=== PATIENT | female | born 1990 | race Caucasian/White ===

== ENCOUNTER 2018-12-16 22:59 | Observation (INO) | payer BC ==
[~2018-12-16] VITALS: Ht 160 cm; Wt 90.9 kg
[~2018-12-16 22:59] MED LIST: FLAGYL500 MG PO; IBUPROFEN600 MG PO; PERCOCET 5-3251 TAB PO; PRENATAL COMPLE1 TAB PO
[2018-12-16 23:48] LABS: BASOPHILS 0.3 % (0-2); EOSINOPHILS 0.4 % (0-7); HEMATOCRIT 39.4 % (36.0-48.0); HEMOGLOBIN 13.9 g/dL (12-16); IMMATURE GRANULOCYTES 0.2 % (0-5); LYMPHOCYTES 10.9 % (15-50); MCH 29.4 pg (26.0-34.0); MCHC 35.3 g/dL (31.0-37.0); MCV 83.3 fL (80.0-100.0); MEAN PLATELET VOLUME 9.5 fL (7.4-10.4); MONOCYTES 3.9 % (2-11); NEUTROPHILS 84.3 % (40-80); RBC 4.73 10x6/uL (4.00-5.40); RDW 12.6 % (11.5-14.5); WBC 12.4 10x3/uL (4.8-10.8)
[2018-12-16 23:51] LABS: PLATELET COUNT 240 10x3/uL (130-400)
[2018-12-16 23:53] LABS: CALC OSMOLALITY 279 mosm/kg (275-300); CALCIUM 8.9 mg/dL (8.5-10.1); CARBON DIOXIDE 26.1 mmol/L (21.0-32.0); CHLORIDE - SERUM 105 mmol/L (98-107); CREATININE - SERUM 0.9 mg/dL (0.6-1.3); GLUCOSE 106 mg/dL (74-106); POTASSIUM - SERUM 4.1 mmol/L (3.5-5.1); SODIUM 140 mmol/L (136-145); UREA NITROGEN 15 mg/dL (7-18); eGFR NON AFRICAN AMERICAN 78 mL/min (90-120)
[2018-12-17] VITALS (9 sets, daily range): BP systolic 103–139; BP diastolic 60–83; Ht 160 cm; Wt 90.9 kg
[2018-12-17 00:31] LABS: INR 1.14 (0.85-1.17); PROTIME 14.1 SECONDS (11.6-15.0)
--- NOTE | 2018-12-17 01:20 | NUR ---
RCV`D PT FROM ER. BREATING EVEN AND UNLABORED, NO SIGNS OF DISTRESS. 22G IV LOCATED TO LEFT HAND, SALINE LOCKED. FIBER CAST AND ANABELL BANDAGE LOCATED ON LEFT ANKLE. REPORTS PAIN 2/10 AT REST, 5/10 WITH MOVEMENT. DENIES ANY NEEDS AT THIS TIME. BED LOW, RAILS UP X 2, CALL LIGHT IN REACH. WILL CONTINUE TO MONITOR.
--- NOTE | 2018-12-17 07:48 | NUR ---
ALERT AND ORIENTED. LUNGS CLEAR BILATERALLY IN ALL HAWK. HEART SOUNDS S1 AND S2 HEARD IN ALL HAWK. BOWEL SOUNDS ACTIVE X 4. CAST TO LEFT ANKLE/LEG WITH ANABELL WRAP IN PLACE. NO ORDER IN CHART FOR CONSENTS YET BUT STATES HAVING SURGERY TODAY. SKIN OTHERWISE INTACT WITHOUT REDNESS. DENIES NEEDS. BED LOW. CALL RIVAS AND PERSONAL ITEMS IN REACH. WILL CONTINUE TO MONITOR.
--- NOTE | 2018-12-17 10:00 | NUR ---
DR MEDINA PAGED D/T NO ORDERS IN FOR CONSENTS FOR PROCEDURE
--- NOTE | 2018-12-17 10:19 | NUR ---
RESTING IN BED. AT BEDSIDE. DENIES NEEDS. WILL CONTINUE TO MONITOR.
--- NOTE | 2018-12-17 10:58 | NUR ---
SPOKE WITH DR MEDINA WHO STATED OBTAIN CONSENTS FOR LEFT ANKLE ORIF.
--- NOTE | 2018-12-17 11:18 | NUR ---
CONSENTS OBTAINED FOR PROCEDURE. DENIES QUESTIONS.
[2018-12-17 14:05] LABS: HCG SERUM NEGATIVE (NEGATIVE)
--- NOTE | 2018-12-17 14:07 | NUR ---
DR MEDINA NOTIFIED OF PATIENT NEGATIVE HCG.
--- NOTE | 2018-12-17 17:54 | NUR ---
RESTING IN BED. DENIES NEEDS. BED LOW. CALL RIVAS AND PERSONAL ITEMS IN REACH. WILL CONTINUE TO MONITOR.
--- NOTE | 2018-12-17 18:37 | NUR ---
PREOP MEDICATIONS GIVEN PER ORDER. PATIENT TAKEN FOR PROCEDURE.
[2018-12-18] VITALS: BP 100/52
[2018-12-18 05:26] VITALS: BP 104/62
--- NOTE | 2018-12-18 07:20 | NUR ---
ALERT AND ORIENTED, RESTING IN BED. UP WITH ASSIST. POD #1 ORIF LEFT ANKLE, SOFT CAST WITH ANABELL BANDAGE. IV TO LEFT HAND, 1/2 NS INFUSING @ 50ML/HR. NO C/O PAIN. DILAUDID BRIMMER BLOCKER MANAGING PAIN AT THIS TIME. NO S/S OF ACUTE DISTRESS NOTED. PT DENIES ANY NEEDS AT THIS TIME. CALL LIGHT IN REACH. FAMILY AT BEDSIDE. WILL CONTINUE TO MONITOR.
[2018-12-18] MEDS ORDERED: HYDROCODON-ACE1 EA10 PO (08:40)
[2018-12-18] MEDS ORDERED: BAYER CHEWABLE81 MG PO (08:40)
[2018-12-18 09:02] VITALS: BP 101/62
--- NOTE | 2018-12-18 10:49 | MORECARE ---
CASE MANAGEMENT DISCHARGE SUMMARY PATIENT: PILY FONSECA UNIT: [id number] ADM DATE: 12/17/18 AGE: 28 : [birth year] SEX: F ROOM/BED: D.2232 AUTHOR: LYNDA,DOC PHYSICIAN: REFERRING PHYSICIAN: MICHELLE MEDINA MD DATE OF SERVICE: 12/18/18 Discharge Plan Patient Name: PILY FONSECA Facility: [facility]:[place] : 1990 Planned Disposition: Home Anticipated Discharge Date: 12/18/18 Discharge Date: Expected LOS: 1 Initial Reviewer: [email or web address] Initial Review Date: 12/18/2018 Generated: 12/18/18 11:49 am Comments DCP- Discharge Planning Updated by [email or web address]: Yanet Curtis on 12/18/18 9:[address] Patient Name: PILY FONSECA Admission Status: ER Accout number: [id number] Admission Date: 12-17-2018 : 1990 Admission Diagnosis: Attending: MICHELLE MEDINA Current LOS: 1 Anticipated DC Date: 12-18-2018 Planned Disposition: Home Primary Insurance: [employer] OUT OF STATE Discharge Planning Comments: CM met with patient to complete initial dc planning assessment. CM educated patient on the CM role and verbal consent given by patient to complete assessment. Patient lives at home with her mother. At discharge patient plans to return and feels this is a safe discharge. CM discussed availability of home health, rehab services, and medical equipment. Patient states she has a walker that is her step father's she can use at home, but will need crutches to use at school and climb steps. She does not have a preference of DME, states whichever one her insurance is in network. States to start with [facility]. I have asked PT to do crutch training. I spoke with Aminata at [facility] and order and clinical faxed for crutches. CM will continue to follow and will assist as needed with dc plans/needs. Extermination Supervisor: Yanet Curtis DCPIA - Discharge Planning Initial Assessment Updated by [email or web address]: Yanet Curtis on 12/18/18 10:44 am * Is the patient Alert and Oriented? Yes * How many steps to enter\exit or inside your home? 5/0 * PCP [facility] Aguilar at [facility] * [facility] [address] * Preadmission Environment Home with Family * ADLs Independent * Equipment None * List name and contact numbers for known caregivers / representatives who currently or will assist patient after discharge: Sidra sanon - [phone] * Verbal permission to speak to the caregivers and representatives has been obtained from the patient. Yes * Community resources currently utilized None * Additional services required to return to the preadmission environment? Yes * Can the patient safely return to the preadmission environment? Yes * Has this patient been hospitalized within the prior 30 days at any hospital? No External Providers External Provider: MUSCOGEEMIGUELEmperatriz [facility] Contact Date: Service Request Date: Service Type: Resolution: Reviewer: Comments: Coverage Notice Reviewer: [email or web address] Estrada Curtis Notice Issued Date-Time: 12/18/2018 10:48 Notice Type: Patient Choice Letter Notice Delivered To: Patient Relationship to Patient: Self Chief Clinical Dietitian Name: Delivery Method: HAND - Hand Delivered Latrice Days: Prior Verbal Notification: Recipient Understood Notice: Yes Recipient Signature: Yes Med Rec Note Co-signed by Attending: Coverage Notice Comment: AMARA for [facility] or whoever her insurance will pay Patient Name: PILY FONSECA Page [phone] at 1049 All edits/amendments must be made on the electronic document DICTATION DATE: 12/18/18 1049 URBAN AND REGIONAL PLANNER: MURIEL 12/18/18 1049 RPT#: [id number] DC DATE: STATUS: ADM IN [facility] [address] [place] [address] END OF REPORT
--- NOTE | 2018-12-18 11:44 | NUR ---
DISCONTINUED ACADEMIC TUTOR. GAVE PT NORCO FOR PAIN SINCE PT DISCHARGING TODAY.
--- NOTE | 2018-12-18 11:58 | NUR ---
I have reviewed this patient and I concur with the Shift Assessment completed by the Licensed Practical Nurse today this shift.
--- NOTE | 2018-12-18 12:21 | OP ---
PATIENT NAME: PILY FONSECA MEDICAL RECORD: [id number] :[birth year] LOCATION:D.MS [id number] ADMISSION DATE:12/17/18 SURGEON: MICHELLE MEDINA MD DATE OF OPERATION: 12/17/2018 PREOPERATIVE DIAGNOSIS: Left bimalleolar ankle fracture. POSTOPERATIVE DIAGNOSIS: Left bimalleolar ankle fracture. PROCEDURE: Open reduction internal fixation of left bimalleolar ankle fracture. SURGEON: Michelle Medina MD ANESTHESIA: General. INTRAOPERATIVE COMPLICATIONS: None. SUMMARY OF PATHOLOGIC FINDINGS: The patient had the displaced spiral fracture of the lateral malleolus and a very small fracture of the medial malleolus, primarily the inferior colliculus. This required threaded K-wire fixation as it was too small to hold the usual screws. OPERATIVE SUMMARY IN DETAIL: After obtaining the appropriate preoperative orthopedic surgery consent as well as anesthetic consultation, evaluation and clearance, the patient was brought to the operating room and placed on the operating table in supine position. After adequate general laryngeal mask airway was administered, tourniquet was placed about the proximal aspect of the left lower extremity. Left lower extremity was prepped and draped in usual sterile fashion. At this point, appropriate preoperative timeout was taken including the patient identifiers, site, as well as medications and allergies. The leg was elevated and exsanguinated, tourniquet was inflated to 350 mmHg. Incision was made over the lateral malleolus, taken down to the level of the periosteum, which was spread back from the fracture site, all interposed hematoma was removed. Fracture was reduced, held with fracture reduction clamps and then the [place] VariAx plate was then placed with a combination of both compression and locking screws for anatomic baptism as seen on fluoroscopy. Next, percutaneous attempts were made to try and affix the medial malleolus inferior collicular part, but it was too small. Incision was made. The fragment was identified and interposed hematoma was removed in its entirety as well as any hematoma in the joint. This was then reduced, held reduced with a [id number] reduction clamp and then affixed with 0.062 threaded K-wires. These were then cut flush to the bone. The wound was irrigated and closed with #1 Vicryl, 2-0 Vicryl and skin stefany. Sterile dressings were applied. Tourniquet was deflated. Posterior L&U splint was applied. The patient was awakened and taken to the recovery room in stable condition. All final needle and sponge counts were correct. TRANSINT:[id number] Voice Confirmation ID: [id number] DOCUMENT ID: [id number] OPERATIVE REPORT [id number] PILY FONSECA MD, MICHELLE ROCHE at 1221 CC: [id number] DICTATION DATE: 12/18/18919 IOS DEVELOPER: 12/18/18 09 ADM IN [place] [id number] [place] [id number]
[2018-12-18 12:54] VITALS: BP 111/63
--- NOTE | 2018-12-18 13:26 | NUR ---
PT DISCHARGE WITH FAMILY VIA WHEELCHAIR ACCOMPAINIED BY HOSPITAL STAFF. NO C/O PAIN. NO S/S OF ACUTE DISTRESS NOTED. DISCONTINUED IV, CATHETER TIP INTACT. WENT OVER DISCHARGE INSTRUCTIONS WITH PATIENT, PATIENT VERBALIZED UNDERSTANDING. PT DENIES ANY NEEDS.
--- NOTE | 2018-12-19 06:51 | MORECARE ---
CASE MANAGEMENT DISCHARGE SUMMARY PATIENT: PILY FONSECA UNIT: [id number] ADM DATE: 12/17/18 AGE: 28 : [birth year] SEX: F ROOM/BED: D.2232 AUTHOR: LYNDA,DOC PHYSICIAN: REFERRING PHYSICIAN: MICHELLE MEDINA MD DATE OF SERVICE: 12/19/18 Discharge Plan Patient Name: PILY FONSECA Facility: [facility]:[place] : 1990 Planned Disposition: Home Anticipated Discharge Date: 12/18/18 Discharge Date: 12/18/2018 Expected LOS: 1 Initial Reviewer: [email or web address] Initial Review Date: 12/18/2018 Generated: 12/19/18 7:51 am Comments DCP- Discharge Planning Updated by [email or web address]: Yanet Curtis on 12/18/18 9:[address] Patient Name: PILY FONSECA Admission Status: ER Accout number: [id number] Admission Date: 12-17-2018 : 1990 Admission Diagnosis: Attending: MICHELLE MEDINA Current LOS: 1 Anticipated DC Date: 12-18-2018 Planned Disposition: Home Primary Insurance: [employer] OUT OF STATE Discharge Planning Comments: CM met with patient to complete initial dc planning assessment. CM educated patient on the CM role and verbal consent given by patient to complete assessment. Patient lives at home with her mother. At discharge patient plans to return and feels this is a safe discharge. CM discussed availability of home health, rehab services, and medical equipment. Patient states she has a walker that is her step father's she can use at home, but will need crutches to use at school and climb steps. She does not have a preference of DME, states whichever one her insurance is in network. States to start with [facility]. I have asked PT to do crutch training. I spoke with Aminata at [facility] and order and clinical faxed for crutches. CM will continue to follow and will assist as needed with dc plans/needs. Banquet Coordinator: Yanet Curtis DCPIA - Discharge Planning Initial Assessment Updated by [email or web address]: Yanet Curtis on 12/18/18 10:44 am * Is the patient Alert and Oriented? Yes * How many steps to enter\exit or inside your home? 5/0 * PCP Maria Del Rosario Aguilar at [facility] * Pharm[facility] [address] * Preadmission Environment Home with Family * ADLs Independent * Equipment None * List name and contact numbers for known caregivers / representatives who currently or will assist patient after discharge: Sidra Crockett - - [phone] * Verbal permission to speak to the caregivers and representatives has been obtained from the patient. Yes * Community resources currently utilized None * Additional services required to return to the preadmission environment? Yes * Can the patient safely return to the preadmission environment? Yes * Has this patient been hospitalized within the prior 30 days at any hospital? No Coverage Notice Reviewer: [id number] Estrada Curtis Notice Issued Date-Time: 12/18/2018 10:48 Notice Type: Patient Choice Letter Notice Delivered To: Patient Relationship to Patient: Self Delimer Name: Delivery Method: HAND - Hand Delivered Latrice Days: Prior Verbal Notification: Recipient Understood Notice: Yes Recipient Signature: Yes Med Rec Note Co-signed by Attending: Coverage Notice Comment: AMARA for [facility] or whoever her insurance will pay Last DP export: 12/18/18 9:49 am Patient Name: PILY FONSECA Page [phone] at 0651 All edits/amendments must be made on the electronic document DICTATION DATE: 12/19/18650 DIVE MASTER: MURIEL 12/19/18650 RPT#: [id number] DC DATE:12/18/18 STATUS: DIS IN [facility] [address] [place] [address] END OF REPORT
== END 2018-12-18 13:28 | disposition home or self-care (01) ==
LOC: D.ER 22:59 → OBSVTIME 12-17 00:02 → D.MS 12-17 00:02
PROVIDERS: Anesthesiology; Emergency Medicine; ADMIT Orthopaedic Surgery; ATTEND Orthopaedic Surgery
DX: S82.842A Displaced bimalleolar fracture of left lower leg, initial encounter for closed fracture (principal); W19.XXXA Unspecified fall, initial encounter